=== PATIENT | male | born 1935 | race Caucasian/White ===

== ENCOUNTER 2018-07-07 12:37 | Emergency (ER) | payer MEDICARE, BC ==
[~2018-07-07] VITALS: Ht 175.3 cm; Wt 86.4 kg
[~2018-07-07 12:37] MED LIST: ALEVE220 MG PO; ASPIRIN E.C. 8181 MG PO; ATORVASTATIN PO; BETHANECHOL; CALCIUM CARBONATE; FAMILY PHARMAC0.4 MG PO; FISH OIL CONCEN1 SGL PO; FLOMAX; VITAMIN B-12100 MCG PO; VITAMIN B610 MG PO; [UNRECOGNIZED DRUG - OTHER]; [UNRECOGNIZED DRUG - OTHER] PO
[2018-07-07 12:49] VITALS: TEMP 98.2
[2018-07-07] MEDS ORDERED: PROSCAR 5MG5 MG (12:59)
[2018-07-07] MEDS ORDERED: CEPHALEXIN500 M1 PO (14:28)
[2018-07-07 14:39] VITALS: BP 145/78; PULSE 88
== END 2018-07-07 14:47 | disposition home or self-care (01) ==
LOC: COL.ER 12:37
DX: S41.121A Laceration with foreign body of right upper arm, initial encounter (principal); E78.5 Hyperlipidemia, unspecified; N40.0 Benign prostatic hyperplasia without lower urinary tract symptoms; Z96.653 Presence of artificial knee joint, bilateral; Z87.891 Personal history of nicotine dependence; Z79.82 Long term (current) use of aspirin; W18.09XA Striking against other object with subsequent fall, initial encounter; Y92.009 Unspecified place in unspecified non-institutional (private) residence as the place of occurrence of the external cause

== ENCOUNTER 2018-07-23 13:34 | Emergency (ER) | payer MEDICARE, BC ==
[~2018-07-23 13:34] MED LIST changes: +CEPHALEXIN500 M1 PO; +PROSCAR 5MG5 MG
[2018-07-23 13:55] VITALS: PULSE 79
== END 2018-07-23 13:55 | disposition home or self-care (01) ==
LOC: COL.ER 13:34
DX: S51.811D Laceration without foreign body of right forearm, subsequent encounter (principal)

== ENCOUNTER 2018-08-14 10:31 | Emergency (ER) | payer MEDICARE, BC ==
[~2018-08-14] VITALS: Ht 175.3 cm; Wt 86.4 kg
[2018-08-14 10:43] VITALS: BP 172/81; TEMP 97.5
[2018-08-14] MEDS ORDERED: DOXYCYCLINE 10100 MG PO (11:30)
[2018-08-14 12:00] VITALS: PULSE 58
== END 2018-08-14 12:00 | disposition home or self-care (01) ==
LOC: COL.ER 10:31
DX: L02.413 Cutaneous abscess of right upper limb (principal); Z79.82 Long term (current) use of aspirin; Z90.49 Acquired absence of other specified parts of digestive tract; Z87.891 Personal history of nicotine dependence

== ENCOUNTER 2023-11-24 11:42 | Emergency (ER) | payer MEDICARE, BC ==
[~2023-11-24] VITALS: Ht 177.8 cm; Wt 81.8 kg
[~2023-11-24 11:42] MED LIST changes: +CIPRO 500MG TA500 MG PO; +DOXYCYCLINE 10100 MG PO
[2023-11-24 12:12] VITALS: TEMP 98.1
[2023-11-24 12:47] LABS: BASO # 0.1 K/mm3 (0.0-0.2); BASO % 0.8 % (0.0-2.0); EOS % 0.6 % (0.0-4.0); GRAN # 4.3 K/mm3 (1.4-6.5); GRAN % 65.6 % (42.2-75.2); HEMATOCRIT 44.2 % (42.0-52.0); HEMOGLOBIN 14.6 g/dl (13.5-18.0); LYMPH # 1.6 K/mm3 (1.2-3.4); LYMPH % 24.1 % (20.0-51.0); MEAN CELL VOLUME 95 fl (80.0-100.0); MEAN CORPUSCULAR HEMOGLOBIN 31 pg (27-31); MEAN CORPUSCULAR HGB CONC 33 g/dl (33.0-37.0); MEAN PLATELET VOLUME 10.6 fl (7.4-10.4); MONO # 0.6 K/mm3 (0.1-0.6); MONO % 8.7 % (1.7-9.3); PLATELET COUNT 247 K/mm3 (130-400); RED BLOOD COUNT 4.66 M/mm3 (4.20-5.60); REDCELL DISTRIBUTION WIDTH-CV 12.5 % (11.5-14.5)
[2023-11-24 12:48] LABS: ALBUMIN 3.5 g/dL (3.4-4.8); CALCIUM 9.3 mg/dL (8.4-10.2); CREATININE, serum 0.85 mg/dL (0.72-1.25); POTASSIUM 4.3 mEq/L (3.5-4.5); TOTAL PROTEIN 6.5 g/dl (6.2-8.1)
[2023-11-24 13:01] LABS: BILIRUBIN,TOTAL 0.5 mg/dL (0.2-1.2)
[2023-11-24] MEDS ORDERED: Levalbuterol Neb Soln 1.25 MG/3 ML UD IH ONE (13:30)
[2023-11-24 14:09] VITALS: BP 166/82; PULSE 64
== END 2023-11-24 14:09 | disposition home or self-care (01) ==
LOC: COL.ER 11:42
PROVIDERS: Physician Assistant
DX: R05.9 Cough, unspecified (principal)